=== PATIENT | female | born 1935 | race Asian ===

== ENCOUNTER 2017-04-05 12:13 | Emergency (ER) | payer OTHER ==
[~2017-04-05] VITALS: Ht 152.4 cm; Wt 60.0 kg
[2017-04-05 12:16] VITALS: Ht 152.4 cm; Wt 60.0 kg
--- NOTE | 2017-04-05 12:51 | ERD ---
ER Documentation Chief Complaint Date/Time DATE: 04/05/17 TIME: 12:49 Chief Complaint pelvic pain radiating to back , fever , chills HPI Patient is an 82-year-old female who presents with gradual onset, constant, moderate, dull right-sided pelvic pain for 1 month. Patient reports having urinary frequency and dysuria for the last 4 days, associated with subjective fever. Patient also reports right-sided back pain. Patient denies vomiting. Patient reports cough productive of a small amount of white sputum. ROS All systems reviewed and are negative except as per history of present illness. Medications Home Meds Active Scripts Azithromycin* (Zithromax*) 250 Mg Tablet, 250 MG PO .ZPACK DIRECTED, #6 TAB TAKE 500 MG (2 TABS) THE FIRST DAY THEN 250 MG (1 TAB) DAYS 2-5 Prov:AVELINA ALBA MD 04/05/17 Reported Medications Lisinopril* (Lisinopril*) 20 Mg Tablet, 20 MG PO DAILY, #30 TAB 04/05/17 Sitagliptin* (Januvia*) 100 Mg Tablet, 100 MG PO DAILY, #30 TAB 04/05/17 Metformin Hcl* (Metformin Hcl*) 1,000 Mg Tablet, 1000 MG PO WITH BREAKFAST DINNE , #30 TAB 04/05/17 Allergies Allergies: Coded Allergies: No Known Allergy (Unverified , 04/05/17) PMhx/Soc Past medical history: Diabetes Past surgical history: None Social history: Denies tobacco or alcohol Medical and Surgical Hx: pt denies Surgical Hx Hx Miscellaneous Medical Probl: Yes (dm) Hx Alcohol Use: No Hx Substance Use: No Hx Tobacco Use: No Smoking Status: Never smoker FmHx Family History: No coronary disease, No diabetes Physical Exam Vitals Vital Signs Date Time Temp Pulse Resp B/P Pulse Ox O2 Delivery O2 Flow Rate FiO2 04/05/17 19:19 84 17 144/64 96 Room Air 04/05/17 17:00 98.9 83 17 116/51 96 Room Air 04/05/17 15:43 79 20 125/58 94 Room Air 04/05/17 13:36 95 17 134/60 95 Room Air 04/05/17 12:16 101.2 98 18 170/73 99 Physical Exam Const: Alert, no acute distress Head: Atraumatic Eyes: Normal Conjunctiva, no pallor, no icterus ENT: Normal External Ears, Nose and Mouth. Mucous membranes moist Neck: Full range of motion..~ No meningismus. Resp: Clear to auscultation bilaterally, no wheezes, no rales Cardio: Regular rate and rhythm, no murmurs Abd: Soft, non tender, non distended. Normal bowel sounds, no guarding, no rebound Skin: No petechiae or rashes Back: No midline tenderness. Mild right paraspinal tenderness, no CVA tenderness Ext: No cyanosis, or edema Neur: Awake and alert, moves and feels 4 extremes appropriate, cranial nerves II through XII intact bilaterally. Psych: Normal Mood and Affect Result Diagram: 04/05/17 1300 04/05/17 1300 Results 24 hrs Laboratory Tests Test 04/05/17 12:55 04/05/17 13:00 04/05/17 13:20 04/05/17 17:15 Urine Color LT. YELLOW Urine Clarity CLEAR Urine pH 5.5 Urine Specific [place] 1.010 Urine Ketones NEGATIVE Urine Nitrite NEGATIVE Urine Bilirubin NEGATIVE Urine Urobilinogen 1.0 E.U./dL Urine Leukocyte Esterase NEGATIVE Urine Microscopic RBC NONE SEEN/HPF Urine Microscopic WBC 0-2/HPF Urine Squamous Epithelial Cells FEW Urine Bacteria FEW Urine Hemoglobin TRACE Urine Glucose 0.5%% Urine Total Protein TRACE White Blood Count 10.110^3/ul Red Blood Count 4.3210^6/ul Hemoglobin 13.0g/dl Hematocrit 39.2% Mean Corpuscular Volume 90.7fl Mean Corpuscular Hemoglobin 30.1pg Mean Corpuscular Hemoglobin Concent 33.2g/dl Red Cell Distribution Width 13.0% Platelet Count 67942^3/UL Mean Platelet Volume 11.4fl Neutrophils % 69.7% Lymphocytes % 19.3% Monocytes % 8.9% Eosinophils % 1.4% Basophils % 0.4% Nucleated Red Blood Cells % 0.0/100WBC Neutrophils # 7.110^3/ul Lymphocytes # 2.010^3/ul Monocytes # 0.910^3/ul Eosinophils # 0.110^3/ul Basophils # 0.010^3/ul Nucleated Red Blood Cells # 0.010^3/ul Sodium Level 136mmol/L Potassium Level 4.2mmol/L Chloride Level 98mmol/L Carbon Dioxide Level 24mmol/L Anion Gap 18 Blood Urea Nitrogen 18mg/dl Creatinine 0.96mg/dl Glucose Level 272mg/dl Lactic Acid Level 2.7mmol/L 1.5mmol/L Calcium Level 9.8mg/dl Total Bilirubin 0.8mg/dl Direct Bilirubin 0.00mg/dl Indirect Bilirubin 0.8mg/dl Aspartate Amino Transf (AST/SGOT) 50IU/L Alanine Aminotransferase (ALT/SGPT) 50IU/L Alkaline Phosphatase 54IU/L Total Protein 8.6g/dl Albumin 4.2g/dl Globulin 4.40g/dl Albumin/Globulin Ratio 0.95 Prothrombin Time 13.3Sec Prothrombin Time Ratio 1.0 INR International Normalized Ratio 1.01 Activated Partial Thromboplast Time 29.2Sec Test 04/05/17 19:00 Lactic Acid Level 1.6mmol/L Current Medications Medications (Trade) Dose Ordered Sig/Jerzy Route PRN Reason Start Time Stop Time Status Last Admin Dose Admin Sodium Chloride (NS) 500 ml @ 500 mls/hr Q1H ONCE IV 04/05/17 13:00 04/05/17 13:59 DC 04/05/17 13:35 Acetaminophen (Tylenol Tab) 650 mg ONCE ONCE PO 04/05/17 13:00 04/05/17 13:01 DC 04/05/17 13:35 Sodium Chloride 1860 ml 1,860 ml BOLUS OVER 2 HOURS STAT IV* 04/05/17 15:13 04/05/17 15:15 DC 04/05/17 15:42 Ceftriaxone Sodium (Rocephin) 50 ml @ 100 mls/hr ONCE STAT IVPB 04/05/17 15:13 04/05/17 15:42 DC 04/05/17 15:42 IV Flush 10 ml 10 ml STK-MED ONCE .ROUTE 04/05/17 18:05 04/05/17 18:06 DC Sodium Chloride (NS) 100 ml @ ud STK-MED ONCE .ROUTE 04/05/17 18:05 04/05/17 18:06 DC Iodixanol (Visipaque Locm) 100 ml STK-MED ONCE .ROUTE 04/05/17 18:05 04/05/17 18:06 DC Procedures/MDM EKG read by me: Time 1256, rate 93 Rhythm: Normal sinus [place]: Normal Intervals: Normal ST-T waves: no ischemic changes Ectopy: No Q-waves: No Impression: No evidence of ischemia or arrhythmia MDM: Patient is an 82-year-old female who presents with fever for 4 days. She also reports 1 month of pelvic pain. Initially she described the pain is in the right lower quadrant and right back, but on reassessment she describes pain in bilateral inguinal regions. Patient's lactic acid was mildly elevated but responded to fluids. There is no evidence of pneumonia on chest x-ray, no evidence of UTI. There is no evidence of appendicitis or diverticulitis on CT of the abdomen. She has no symptoms to suggest pelvic infection. She reports chronic back pain, and has paraspinal tenderness but no symptoms concerning for spinal abscess and no neurologic deficits. There is no sign of soft tissue infection including in the perineum. She has no shingles rash. There are no meningeal signs. There is no heart murmur. The patient's vital signs are stable. The patient initially reported urinary frequency and dysuria, but on reassessment denies dysuria and only reports frequency. There is no evidence of UTI on UA. The patient does have a new cough and low normal O2 sat, so bronchitis versus early pneumonia cannot be excluded. I will discharge her with a prescription for azithromycin. Blood cultures and urine cultures were sent. I have advised the patient's family to bring her back to the ER if any new symptoms arise or her condition worsens, and otherwise to follow-up with her PMD in the next 2-3 days. The patient is found to have cirrhosis, which she is unaware of, but there is no evidence of acute complication related to cirrhosis. The patient has hyperglycemia due to diabetes mellitus, but there is no evidence of DKA. I believe the patient to be stably discharged home with close PMD follow-up and return precautions if her condition worsens. I believe the most likely cause of her fevers upper respiratory infection due to new cough and all other symptoms being chronic. Departure Diagnosis: Primary Impression: Fever Encounter type: initial encounter Additional Impressions: Cough Inguinal pain Laterality: unspecified laterality Qualified Code: R10.30 - Inguinal pain, unspecified laterality Condition: Stable AVELINA ALBA MD April 05, 2017 12:51
[2017-04-05] MEDS ORDERED: ACETAMINOPHEN 325 MG TAB PO ONE (13:00)
[2017-04-05] MEDS ORDERED: SOD CHLORIDE 0.9% 500 ML IV ONE (13:00)
--- NOTE | 2017-04-05 13:22 | RADRPT ---
PROCEDURE: XR Chest. CLINICAL INDICATION: Possible Sepsis TECHNIQUE: Single frontal view of the chest was obtained COMPARISON: None FINDINGS: The heart and mediastinum are within normal limits. There is mild patchy bibasilar atelectasis. The lungs are otherwise clear. There is no pleural effusion or pneumothorax. The bones and soft tissue show no acute change. IMPRESSION: Mild patchy bibasilar atelectasis. Otherwise, no significant abnormalities are identified. RPTAT:AAJJ Physician Tigist Date Time Electronically viewed and signed by Sai Wray Physician on 04/05/2017 13:22 /
[2017-04-05] MEDS ORDERED: METF1000 PO (13:40)
[2017-04-05] MEDS ORDERED: SITA100T8 PO (13:40)
[2017-04-05] MEDS ORDERED: LISI20TA11 PO (13:40)
[2017-04-05 13:42] LABS: ADD UMIC YES; URINE BILIRUBIN (Dip) NEGATIVE (NEGATIVE); URINE BLOOD (Dip) TRACE (NEGATIVE); URINE COLOR LT. YELLOW (YELLOW); URINE KETONES (Dip) NEGATIVE (NEGATIVE); URINE LEUKOCYTE ESTERASE (Dip) NEGATIVE (NEGATIVE); URINE NITRITE (Dip) NEGATIVE (NEGATIVE); URINE TOTAL PROTEIN (Dip) TRACE (NEGATIVE); URINE UROBILINOGEN (Dip) 1.0 E.U./dL (0.1-1.0)
[2017-04-05 13:48] LABS: ADD SCAN DIFF NO
[2017-04-05 13:49] LABS: BASOPHILS % 0.4 % (0.0-2.0); EOSINOPHILS # 0.1 10^3/ul (0.0-0.5); EOSINOPHILS % 1.4 % (0.0-7.0); HEMATOCRIT 39.2 % (37.0-47.0); LYMPHOCYTES % 19.3 % (15.0-51.0); MEAN CORPUSCULAR HEMOGLOBIN 30.1 pg (29.0-33.0); MEAN CORPUSCULAR HGB CONC 33.2 g/dl (32.0-37.0); MEAN CORPUSCULAR VOLUME 90.7 fl (82.0-101.0); MEAN PLATELET VOLUME 11.4 fl (7.4-10.4); MONOCYTE # 0.9 10^3/ul (0.3-0.9); MONOCYTES % 8.9 % (0.0-11.0); NEUTROPHIL # 7.1 10^3/ul (1.6-7.5); NEUTROPHILS % 69.7 % (39.0-77.0); PLATELET COUNT 164 10^3/UL (140-415); RED BLOOD COUNT 4.32 10^6/ul (4.20-5.40); WHITE BLOOD COUNT 10.1 10^3/ul (4.8-10.8)
[2017-04-05 13:51] LABS: BACTERIA,URINE FEW; SQUAMOUS EPITHELIAL CELL,UR FEW; URINE RBCS NONE SEEN /HPF (0)
[2017-04-05 14:05] LABS: ALBUMIN 4.2 g/dl (3.3-4.9)
[2017-04-05 14:06] LABS: POTASSIUM 4.2 mmol/L (3.5-5.1)
[2017-04-05 14:08] LABS: ALBUMIN/GLOBULIN RATIO 0.95; BILIRUBIN,INDIRECT 0.8 mg/dl (0-1.1); BILIRUBIN,TOTAL 0.8 mg/dl (0.2-1.3); CREATININE 0.96 mg/dl (0.44-1.00); TOTAL PROTEIN 8.6 g/dl (6.1-8.1)
[2017-04-05 14:09] LABS: CALCIUM 9.8 mg/dl (8.4-10.2)
[2017-04-05] MEDS ORDERED: SODIUM CHLORIDE 0.9% 1L BAG IV* STA (15:13)
[2017-04-05] MEDS ORDERED: CEFTRIAXONE 1 GM/50 ML (PMX) 50 ML IVPB STA (15:13)
[2017-04-05 15:26] LABS: INR 1.01; PROTIME 13.3 Sec (12.2-14.2)
[2017-04-05 15:27] LABS: PARTIAL THROMBOPLASTIN TIME 29.2 Sec (25.0-35.0)
--- NOTE | 2017-04-05 16:27 | RADRPT ---
PROCEDURE: CT Abdomen and Pelvis without contrast. CLINICAL INDICATION: Abdominal pain. TECHNIQUE: Routine abdominopelvic CT was performed without intravenous contrast and reformatted in the axial, coronal, sagittal planes. Radiation dose: CTDIvol (mGy) = 6.7; total DLP mGy-cm = 361. One or more of the following radiation dose techniques were used: -Automated exposure control. -Adjust of the mA and/or kV according to patient size. -Use of iterative reconstruction technique. COMPARISON: None. FINDINGS: Cirrhotic morphology of the liver is noted. Gallbladder, biliary system, pancreas, adrenal glands, and spleen demonstrate no gross abnormality. Kidneys demonstrate symmetric attenuation without hydronephrosis or nephrolithiasis. Ill-defined lo w attenuation in the lower pole of the right kidney is poorly evaluated without intravenous contrast . There is no abnormal bowel wall thickening or dilatation. No mesenteric or retroperitoneal lymphade nopathy. Pelvic viscera is grossly unremarkable. No adnexal cyst or mass. No free fluid or fluid collection . Diffuse atherosclerotic aortic calcifications without aneurysm. Small hiatal hernia. IMPRESSION: Please note that this examination is significantly limited by the absence of intravenous contrast. Liver cirrhosis. No focal inflammatory process or overt fluid collection/abscess. RPTAT: EE .Jayesh Souza MD, MD Date Time Electronically viewed and signed by .Jayesh Souza MD, on 04/05/2017 16:32 .C/
[2017-04-05 17:00] VITALS: TEMP 98.9
[2017-04-05] MEDS ORDERED: IODIXANOL LOCM 100 ML BTL ONE (18:05)
[2017-04-05] MEDS ORDERED: SOD CHLORIDE 0.9% 100 ML ONE (18:05)
--- NOTE | 2017-04-05 18:47 | RADRPT ---
PROCEDURE: CT Abdomen and Pelvis with contrast. CLINICAL INDICATION: Abdominal pain TECHNIQUE: CT of the abdomen and pelvis was performed on a multi-detector scanner following the un complicated IV administration of 100 cc of Visipaque 320. Coronal and sagittal images were reformat mikaela from the axial data set. One or more of the following dose reduction techniques were used: auto mated exposure control, adjustment of the mA and/or kV according to patient size, use of iterative reconstruction technique. CTDI = 6.62 mGy. DLP = 388.64 mGy-cm. COMPARISON: Noncontrast CT, 04/05/2017 FINDINGS: CT abdomen: The lung bases are clear. The heart size is normal, without pericardial effusion. The liver is cir rhotic. No focal hepatic mass is identified. Gallbladder, biliary tree, pancreas, spleen, adrenal glands and kidneys are unremarkable except for benign renal cysts. No urolithiasis or obstructive u ropathy is identified. Mild hiatal hernia is noted. Mild gastroesophageal varices are present. Th e stomach is otherwise grossly unremarkable. There is no abdominal aortic aneurysm or dissection. Aortic vascular calcifications are present. T here is no retroperitoneal lymphadenopathy. The keli hepatis region is clear. CT pelvis: No bowel obstruction, free intraperitoneal air or abscess is identified. There is no diverticulosis , diverticulitis or colitis. The appendix is well visualized and normal. Urinary bladder, uterus a nd adnexa are grossly unremarkable. No pelvic mass, free fluid or lymphadenopathy is identified. The surrounding osseous structures are remarkable for degenerative spondylosis of the spine. No ost eolytic or osteoblastic lesion is detected. IMPRESSION: 1. The liver is cirrhotic. 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 2. Mild hiatal hernia is noted. 3. Aortoiliac atherosclerotic calcifications are present. 4. No mass, lymphadenopathy, or focal acute inflammatory process is identified. RPTAT: QQ .Ryder Butts MD, MD Date Time Electronically viewed and signed by .Ryder Butts MD, MD on 04/05/2017 18:46 .R/
[2017-04-05 19:19] VITALS: BP 144/64; PULSE 84; RESP 17
[2017-04-05] MEDS ORDERED: AZIT250T94 PO (19:26)
== END 2017-04-05 19:40 | disposition home or self-care (01) ==
LOC: E/R 12:13
DX: R50.9 Fever, unspecified (principal); R05 Cough; R10.30 Lower abdominal pain, unspecified; E11.9 Type 2 diabetes mellitus without complications; Z79.84 Long term (current) use of oral hypoglycemic drugs
CPT/HCPCS: 36415; 71010; 74176; 74177; 80053; 81001; 83605; 85025; 85610; 85730; 87040; 87086; 93005; 96361; 96365; 99285; J0696; J7030; J7040; Q9967; 81003

== ENCOUNTER 2017-07-06 14:00 | Emergency (ER) | END 2017-07-06 17:49 | disposition home or self-care (01) | DX: R10.84 Generalized abdominal pain (principal); K74.60 Unspecified cirrhosis of liver; E11.9 Type 2 diabetes mellitus without complications; Z79.84 Long term (current) use of oral hypoglycemic drugs | CPT/HCPCS: 36415; 74176; 76705; 80053; 81001; 83690; 85025; 96374; 96375; 99285; J2270; J2405; J7030 ==

== ENCOUNTER 2018-05-25 16:41 | Emergency (ER) | END 2018-05-25 21:13 | disposition home or self-care (01) ==